=== PATIENT | female | born 1940 | race Caucasian/White ===

== ENCOUNTER 2018-09-27 11:23 | Emergency (ER) | payer MEDICARE ==
[~2018-09-27] VITALS: Ht 147.3 cm; Wt 77.1 kg
[~2018-09-27 11:23] MED LIST: AMLODIPINE BESYL5 MG PO; FLOVENT DISKU100 MCG; MACROBID 100 M100 MG PO; METOPROLOL TART25 MG PO; PROAIR HFA INH8.5 GM; SERTRALINE HCL50 MG PO
--- OUTSIDE RECORDS SUMMARY | 2018-09-27 11:26 | XMS REPORT ---
Author Author Carlos Yanes Organization [employer] Address Unknown Phone Unavailable Care Team Providers Care Train Announcer Name Role Phone Carlos Yanes CP Unavailable Allergies No Known Allergies Problems No Known Problems Medications Medication Code System Code Instructions Start Date End Date Status Dosage Sertraline HCl ND 76815361033 25 MG Orally Once a day Active 1 tablet Losartan Potassium NDC 55406237661 25 MG Orally Once a day Active 1/2 tablet ProAir HFA ND 42319694984 108 (90 Base) MCG/ACT Inhalation every 4 hrs Active 2 puffs as needed Flovent HFA ND 28559131357 110 MCG/ACT Inhalation Twice a day Active 1 puff Amlodipine Besylate ND 09873769590 5 MG Orally Once a day Active 1 tablet Metoprolol Tartrate NDC 06191665702 25 MG Orally Twice a day Active 1 tablet with food Results No Known Results Summary Purpose [employer] Submission
--- OUTSIDE RECORDS SUMMARY | 2018-09-27 11:26 | XMS REPORT ---
Author Author Carlos Yanes Organization [employer] Address Unknown Phone Unavailable Care Team Providers Care Bronc Buster Name Role Phone Carlos Yanes CP Unavailable Allergies No Known Allergies Problems No Known Problems Medications No Known Medications Results No Known Results Summary Purpose [employer] Submission
--- OUTSIDE RECORDS SUMMARY | 2018-09-27 11:26 | XMS REPORT ---
Author Author Carlos Yanes Organization [employer] Address Unknown Phone Unavailable Care Team Providers Care Cyber Security Manager Name Role Phone Carlos Yanes CP Unavailable Allergies, Adverse Reactions, Alerts Substance Reaction Event Type Penicillin Info Not Available Non Drug Allergy dye-test (iodine) Info Not Available Non Drug Allergy erythromycin Info Not Available Non Drug Allergy Problems Problem Type Condition Code Onset Dates Condition Status Assessment Hypertensive heart disease without heart failure I11.9 Active Assessment Abnormal ECG R94.31 Active Assessment Dyspnea, unspecified R06.00 Active Problem Preoperative cardiac clearance Z01.810 Active Problem Coarctation of aorta Q25.1 Active Problem Nonrheumatic aortic (valve) stenosis I35.0 Active Assessment Preoperative cardiac clearance Z01.810 Active Assessment Coarctation of aorta Q25.1 Active Problem Hypertensive heart disease without heart failure I11.9 Active Assessment Nonrheumatic aortic (valve) stenosis I35.0 Active Medications Medication Code System Code Instructions Start Date End Date Status Dosage Sertraline HCl [facility] 79037126197 25 MG Orally Once a day Active 1 tablet Losartan Potassium ND 07477002313 25 MG Orally Once a day Active 1/2 tablet ProAir HFA [facility] 86729504264 108 (90 Base) MCG/ACT Inhalation every 4 hrs Active 2 puffs as needed Flovent HFA [facility] 44759079260 110 MCG/ACT Inhalation Twice a day Active 1 puff Amlodipine Besylate ND 30480831837 5 MG Orally Once a day Active 1 tablet Metoprolol Tartrate ND 31670631715 25 MG Orally Twice a day Active 1 tablet with food Vital Signs Date/Time: Mar 07, 2017 BMI 34.74 Index Weight 172 lbs Height 4ft 11in in Cardiac Monitoring Heart Rate 60 /min Blood Pressure Diastolic 70 mm Hg Blood Pressure Systolic 130 mm Hg Results No Known Results Summary Purpose [employer] Submission
--- OUTSIDE RECORDS SUMMARY | 2018-09-27 11:26 | XMS REPORT ---
Author Author Carlos Yanes Organization [employer] Address Unknown Phone Unavailable Care Team Providers Care Sales Warehouse Driver Name Role Phone Carlos Yanes CP Unavailable Allergies, Adverse Reactions, Alerts Substance Reaction Event Type Penicillin Info Not Available Non Drug Allergy dye-test (iodine) Info Not Available Non Drug Allergy erythromycin Info Not Available Non Drug Allergy Problems Problem Type Condition Code Onset Dates Condition Status Assessment Hypertensive heart disease without heart failure I11.9 Active Assessment Bruit R09.89 Active Assessment Dyspnea, unspecified R06.00 Active Problem Preoperative cardiac clearance Z01.810 Active Problem Coarctation of aorta Q25.1 Active Problem Nonrheumatic aortic (valve) stenosis I35.0 Active Assessment Coarctation of aorta Q25.1 Active Assessment Abnormal ECG R94.31 Active Problem Hypertensive heart disease without heart failure I11.9 Active Assessment Preoperative cardiac clearance Z01.810 Active Medications Medication Code System Code Instructions Start Date End Date Status Dosage Sertraline HCl [facility] 61554763893 25 MG Orally Once a day Active 1 tablet Losartan Potassium ND 83929839391 25 MG Orally Once a day Active 1/2 tablet Amlodipine Besylate ND 81437808740 5 MG Orally Once a day Active 1 tablet Metoprolol Tartrate ND 13935552918 25 MG Orally Twice a day Active 1 tablet with food ProAir HFA [facility] 92058397965 108 (90 Base) MCG/ACT Inhalation every 4 hrs Active 2 puffs as needed Flovent HFA ND 26474331215 110 MCG/ACT Inhalation Twice a day Active 1 puff Vital Signs Date/Time: Feb 17, 2017 BMI 34.74 Index Weight 172 lbs Height 4ft 11in in Cardiac Monitoring Heart Rate 56 /min Blood Pressure Diastolic 88 mm Hg Blood Pressure Systolic 140 mm Hg Results No Known Results Summary Purpose [employer] Submission
--- OUTSIDE RECORDS SUMMARY | 2018-09-27 11:26 | XMS REPORT | Continuity of Care Document ---
Author Author [facility] Address Unknown Phone Unavailable Problems Problem Status Onset Date Classification Date Reported Comments Source Hypertensive heart disease without heart failure Active Diagnosis 05/17/2017 Ishmael Barbosa MD, GIL[facility] Abnormal ECG Active Diagnosis 05/17/2017 Ishmael Barbosa MD, [place] Dyspnea, unspecified Active Diagnosis 05/17/2017 Ishmael Barbosa MD, GIL[facility] Preoperative cardiac clearance Active Problem 05/17/2017 Ishmael Barbosa MD, [place] Coarctation of aorta Active Problem 05/17/2017 Ishmael Barbosa MD, [place] Nonrheumatic aortic stenosis Active Problem 05/17/2017 Ishmael Barbosa MD, [place] Bruit Active Diagnosis 05/17/2017 Ishmael Barbosa MD, GIL[facility] Medications Medication Details Route Status Patient Instructions Ordering Provider Order Date Source Sertraline HCl 1 tablet Orally Active 25 MG Orally Once a day Farzana Barbosa MD, PA Losartan Potassium 1/2 tablet Orally Active 25 MG Orally Once a day Farzana Barbosa MD, PA ProAir HFA 2 puffs as needed Inhalation Active 108 (90 Base) MCG/ACT Inhalation every 4 hrs Farzana Barbosa MD, PA Flovent HFA 1 puff Inhalation Active 110 MCG/ACT Inhalation Twice a day Farzana Barbosa MD, PA Amlodipine Besylate 1 tablet Orally Active 5 MG Orally Once a day Farzana Barbosa MD, PA Metoprolol Tartrate 1 tablet with food Orally Active 25 MG Orally Twice a day Farzana Barbosa MD, PA Allergies, Adverse Reactions, Alerts Substance Category Reaction Severity Reaction type Status Date Reported Comments Source Penicillin Adverse Reaction Info Not Available Adverse Reaction Active 03/07/2017 Ishmael Barbosa MD, [place] dye-test (iodine) Adverse Reaction Info Not Available Adverse Reaction Active 03/07/2017 Ishmael Barbosa MD, [place] erythromycin Adverse Reaction Info Not Available Adverse Reaction Active 03/07/2017 Ishmael Barbosa MD, [place] Immunizations Immunization Date Given Site Status Last Updated Comments Source Results Order Name Results Value Reference Range Date Interpretation Comments Source Vital Signs Vital Sign Value Date Comments Source Weight 172 03/07/2017 Ishmael Barbosa MD, [place] Heart Rate 60 03/07/2017 Ishmael Barbosa MD, [place] Diastolic (mm Hg) 70 03/07/2017 Ishmael Barbosa MD, [place] Systolic (mm Hg) 130 03/07/2017 Ishmael Barbosa MD, [place] Weight 172 02/17/2017 Ishmael Barbosa MD, [place] Heart Rate 56 02/17/2017 Ishmael Barbosa MD PA Diastolic (mm Hg) 88 02/17/2017 Ishmael Barbosa MD [place] Systolic (mm Hg) 140 02/17/2017 Ishmael Barbosa MD PA Encounters Location Location Details Encounter Type Encounter Number Reason For Visit Attending Provider ADM Date DC Date Status Source Procedures Procedure Code Date Perfomer Comments Source
[2018-09-27] MEDS ORDERED: TETANUS/DIPHTHERIA TOX ADULT 0.5 ML SYR ONE (11:40)
[2018-09-27] MEDS ORDERED: TETANUS/DIPHTHERIA TOX ADULT 0.5 ML SYR IM ONE (11:45)
--- NOTE | 2018-09-27 11:52 | NUR ---
PT STATES PAIN, BUT DECLINED ANY PAIN MEDICINE, "I MADE IT TO 78, IM NOT STOPPING NOW." PT COOPERATIVE.
[2018-09-27] MEDS ORDERED: BACITRACIN ZINC 0.9GM TP ONE ×2 (11:58→12:15)
[2018-09-27] MEDS ORDERED: HYDROCODONE/APAP 5MG-325MG TAB PO ONE (12:00)
--- NOTE | 2018-09-27 12:05 | Diagnostic Imaging Report ---
Exam: Head CT without contrast History: Trauma, fall, hit right side of head. Comparison studies: None Technique: Axial images were obtained from the skull base to the vertex. Coronal and sagittal images reconstructed from the axial data. Dose modulation, iterative reconstruction, and/or weight based adjustment of the mA/kV was utilized to reduce the radiation dose to as low as reasonably achievable. Radiation dose: Total DLP: 969 mGy*cm. Estimated effective dose: DLP x 0.015 Intravenous contrast: None Findings: Scalp: No abnormalities. Bones: No fractures, blastic or lytic lesions. Brain sulci: Mildly prominent but age appropriate. Ventricles: Normal in size and configuration. No hydrocephalus. Extra-axial spaces: No masses, no fluid collection. Parenchyma: No mass, acute hemorrhage or acute or chronic cortical insults. A few subtle hypodensities in the supratentorial white matter are nonspecific but most compatible with chronic microvascular ischemic changes. Sellar/suprasellar region: No abnormalities. Craniocervical junction: Patent foramen magnum. No Chiari one malformation. Incidental findings: Bilateral lens replacements for previous cataract surgery. Atherosclerotic calcifications in the carotid siphons and intradural vertebral arteries. IMPRESSION: 1. No acute abnormalities. 2. Mild supratentorial chronic microvascular ischemic changes. Signed by: Dr. Adán Umaña M.D. on 09/27/2018 12:02 PM
--- NOTE | 2018-09-27 12:22 | Diagnostic Imaging Report ---
Exam: Right forearm 2 views History: Pain status post fall Comparison: None. Findings: The bones are osteopenic. No acute, displaced fracture or dislocation. Joint spaces are well-maintained. Soft tissues are unremarkable. Impression: No acute osseous abnormality. Signed by: Dr. Adán Momin M.D. on 09/27/2018 12:19 PM
--- NOTE | 2018-09-27 12:31 | Diagnostic Imaging Report ---
Exam: Right hand 3 views History: Fall on hand, pain Comparison: None. Findings: No acute, displaced fracture or dislocation. Advanced first carpometacarpal degenerative joint disease with large marginal osteophytes. Joint space narrowing and ulnar side erosions involving the second, third, and fourth proximal interphalangeal joints. First interphalangeal joint is affected to a lesser extent. Soft tissues are unremarkable. Bones are diffusely osteopenic. Impression: No acute osseous abnormalities. Interphalangeal osteoarthrosis as above. Signed by: Dr. Adán Momin M.D. on 09/27/2018 12:28 PM
== END 2018-09-27 13:05 | disposition home or self-care (01) ==
LOC: FSED 11:23
DX: S00.33XA Contusion of nose, initial encounter (principal); S50.11XA Contusion of right forearm, initial encounter; S00.31XA Abrasion of nose, initial encounter; S50.811A Abrasion of right forearm, initial encounter; W01.0XXA Fall on same level from slipping, tripping and stumbling without subsequent striking against object, initial encounter; Y93.01 Activity, walking, marching and hiking; Y92.830 Public park as the place of occurrence of the external cause; I10 Essential (primary) hypertension; J45.909 Unspecified asthma, uncomplicated; F41.9 Anxiety disorder, unspecified; F32.9 Major depressive disorder, single episode, unspecified
CPT/HCPCS: 70450; 90471; 90714; 99284

== ENCOUNTER 2022-08-09 00:04 | Emergency (ER) | payer MEDICARE ==
[~2022-08-09] VITALS: Ht 147.3 cm; Wt 77.1 kg
[2022-08-09] MEDS ORDERED: ACETAMINOPHEN 325 MG TAB PO ONE (00:15)
[2022-08-09 02:31] VITALS: BP 140/75
== END 2022-08-09 02:41 | disposition home or self-care (01) ==
LOC: ER 00:08
DX: S00.83XA Contusion of other part of head, initial encounter (principal); W01.0XXA Fall on same level from slipping, tripping and stumbling without subsequent striking against object, initial encounter; Y93.01 Activity, walking, marching and hiking; Y92.89 Other specified places as the place of occurrence of the external cause; I10 Essential (primary) hypertension; J45.909 Unspecified asthma, uncomplicated; F41.9 Anxiety disorder, unspecified; F32.A Depression, unspecified; E66.9 Obesity, unspecified; I34.1 Nonrheumatic mitral (valve) prolapse; R94.31 Abnormal electrocardiogram [ECG] [EKG]
CPT/HCPCS: 70450; 72125; 93005; 99284